=== PATIENT | female | born 1960 ===

== ENCOUNTER 2022-01-16 12:08 | Emergency (ER) | payer OTHER ==
[~2022-01-16] VITALS: Ht 157.5 cm; Wt 65.3 kg
[2022-01-16] MEDS ORDERED: TOPROL XL100 M1 PO (12:32)
[2022-01-16] MEDS ORDERED: BACTRIM DS TAB1 EACH PO (12:33)
== END 2022-01-16 22:02 | disposition home or self-care (01) ==
LOC: ER 12:08
DX: N83.8 Other noninflammatory disorders of ovary, fallopian tube and broad ligament (principal); I10 Essential (primary) hypertension